=== PATIENT | female | born 1960 | race Caucasian/White ===

== ENCOUNTER 2016-04-26 19:59 | Inpatient (IN) | payer OTHER, BC ==
[~2016-04-26] VITALS: Ht 167.6 cm; Wt 68.6 kg
[2016-04-26 20:08] VITALS: BP 170/95; PULSE 84; RESP 18; TEMP 97.9; O2SAT 97
[2016-04-26] MEDS ORDERED: ONDANSETRON HCL 4 MG/2 ML VIAL IV PUSH ONE (20:15)
[2016-04-26] MEDS ORDERED: TETANUS/DIPHTHERIA TOXOID ADULT 0.5 ML VIAL IM ONE (20:15)
[2016-04-26] MEDS ORDERED: ceFAZolin 2 GM PREMIX 50 ML IV ONE (20:15)
[2016-04-26] MEDS ORDERED: HYDROmorphone HCL PF 1 MG/ML VIAL IV PUSH ONE ×2 (20:15→23:15)
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
[2016-04-26] MEDS ORDERED: ESTR0.5T3 PO (20:21)
[2016-04-26] MEDS ORDERED: VALA500T PO (20:21)
[2016-04-26] MEDS ORDERED: FLUT1SPR5 EACH NARE (20:21)
[2016-04-26] MEDS ORDERED: AMBI10TA PO (20:21)
[2016-04-26] MEDS ORDERED: IMIT25TA PO (20:21)
[2016-04-26 22:04] LABS: BASOPHIL % 0.2 % (0.0-2.0); EOSINOPHIL # 0.2 TH/MM3 (0-0.4); EOSINOPHIL % 1.7 % (0.0-4.0); HEMO FLAGS DIFF FINAL; LYMPH % 16.9 % (9.0-44.0); MEAN CELL VOLUME 92.1 FL (80.0-100.0); MEAN CORPUSCULAR HEMOGLOBIN 31.1 PG (27.0-34.0); MEAN CORPUSCULAR HGB CONC 33.8 % (32.0-36.0); NEUT % 75.2 % (16.0-70.0); PLATELET COUNT 320 TH/MM3 (150-450); RED BLOOD COUNT 4.12 MIL/MM3 (4.00-5.30); RED CELL DISTRIBUTION WIDTH 14.4 % (11.6-17.2); WHITE BLOOD COUNT 11.9 TH/MM3 (4.0-11.0)
[2016-04-26 22:17] LABS: APTT (PATIENT) 22.6 SEC (24.3-30.1); PROTHROMBIN TIME - PATIENT 10.7 SEC (9.8-11.6)
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
[2016-04-26] MEDS ORDERED: IOHEXOL 350 MG/ML 10 ML VIAL (for RAD DIAG) IV ONE (22:26)
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
[2016-04-26 22:45] LABS: BICARBONATE 25.3 MEQ/L (21.0-32.0); POTASSIUM 3.3 MEQ/L (3.5-5.1)
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
--- NOTE | 2016-04-26 23:06 | PD ---
Data Data Last Documented VS Vital Signs Date Time Temp Pulse Resp B/P Pulse Ox O2 Delivery O2 Flow Rate FiO2 04/26/16 23:50 100 3.00 100 04/26/16 23:50 Nasal Cannula 04/26/16 20:08 97.9 84 18 170/95 Orders Basic Metabolic Panel (Bmp) (04/26/16 20:14) Complete Blood Count With Diff (04/26/16 20:14) Prothrombin Time / Inr (Pt) (04/26/16 20:14) Act Partial Throm Time (Ptt) (04/26/16 20:14) Chest, Single Ap (04/26/16 20:14) Ct Brain W/O Iv Contrast(Rout) (04/26/16 20:14) Ct Cerv Spine W/O Contrast (04/26/16 20:14) Ct Abd/Pel W Iv Contrast(Rout) (04/26/16 20:14) Ct Thorax/ Chest W Iv Contrast (04/26/16 20:14) Forearm (2vws) (04/26/16 ) Type And Screen (04/26/16 20:14) Hydromorphone Pf Inj (Dilaudid Pf Inj) (04/26/16 20:15) Ondansetron Inj (Zofran Inj) (04/26/16 20:15) Tetanus/Diphtheria Tox Adult (Tetanus/Di (04/26/16 20:15) Electrocardiogram (04/26/16 ) Apply Cervical Collar (04/26/16 20:14) Cefazolin 2 Gm Premix (Ancef 2 Gm Premix (04/26/16 20:15) Collar [place] (04/26/16 ) Elbow, Limited (Ap&Lat) (04/26/16 ) Shoulder, Limited(2vws) (04/26/16 ) Iohexol 350 Inj (Omnipaque 350 Inj) (04/26/16 22:26) Hydromorphone Pf Inj (Dilaudid Pf Inj) (04/26/16 23:15) Propofol 200 Mg/20 Ml Inj (Diprivan 200 (04/26/16 23:45) Admit Order (Ed Use Only) (04/27/16 00:38) Vital Signs (Adult) Q4H (04/27/16 00:38) Diet Npo (04/27/16 Breakfast) Activity Bed Rest (04/27/16 00:38) ^ Saline Lock (04/27/16 00:38) ^ Notify Dr: Other (04/27/16 00:38) Ondansetron Inj (Zofran Inj) (04/27/16 00:45) Neuro Checks . ORDERED (04/27/16 00:38) Sodium Chloride 0.9% Flush (Ns Flush) (04/27/16 09:00) Sodium Chloride 0.9% Flush (Ns Flush) (04/27/16 00:45) Consult Orthopedic (04/27/16 00:38) Elbow, Limited (Ap&Lat) (04/27/16 ) Labs Laboratory Tests Test 04/26/16 21:10 White Blood Count 11.9 TH/MM3 Red Blood Count 4.12 MIL/MM3 Hemoglobin 12.8 GM/DL Hematocrit 38.0 % Mean Corpuscular Volume 92.1 FL Mean Corpuscular Hemoglobin 31.1 PG Mean Corpuscular Hemoglobin 33.8 % Concent Red Cell Distribution Width 14.4 % Platelet Count 320 TH/MM3 Mean Platelet Volume 8.9 FL Neutrophils (%) (Auto) 75.2 % Lymphocytes (%) (Auto) 16.9 % Monocytes (%) (Auto) 6.0 % Eosinophils (%) (Auto) 1.7 % Basophils (%) (Auto) 0.2 % Neutrophils # (Auto) 9.0 TH/MM3 Lymphocytes # (Auto) 2.0 TH/MM3 Monocytes # (Auto) 0.7 TH/MM3 Eosinophils # (Auto) 0.2 TH/MM3 Basophils # (Auto) 0.0 TH/MM3 CBC Comment DIFF FINAL Differential Comment Prothrombin Time 10.7 SEC Prothromb Time International 1.0 RATIO Ratio Activated Partial 22.6 SEC Thromboplast Time Sodium Level 142 MEQ/L Potassium Level 3.3 MEQ/L Chloride Level 105 MEQ/L Carbon Dioxide Level 25.3 MEQ/L Anion Gap 12 MEQ/L Blood Urea Nitrogen 13 MG/DL Creatinine 0.74 MG/DL Estimat Glomerular Filtration 81 ML/MIN Rate Random Glucose 103 MG/DL Calcium Level 8.2 MG/DL Blood Type B POSITIVE Antibody Screen NEGATIVE Blood Bank Comment [facility] Medical Record Reviewed: Yes Supervised Visit with RIOS: Yes Narrative Course Last [address] 04/26/162013 Signed Impressions: Service Date/Time: Tuesday, April 26, 2016 22:11 - CONCLUSION: 1. No acute findings. Paulie Chisholm MD Chest X-Ray 04/26/162013 Signed Impressions: Service Date/Time: Tuesday, April 26, 2016 21:40 - CONCLUSION: No acute disease. Paulie Chisholm MD Chest CT 04/26/162013 Signed Impressions: Service Date/Time: Tuesday, April 26, 2016 22:15 - CONCLUSION: 1. Fractures of the medial left clavicle and proximal left humerus. No mediastinal hematoma or evidence for traumatic aortic injury. No pneumothorax or effusion. 2. Enlarged main pulmonary artery. Paulie Chisholm MD Cervical Spine CT 04/26/162013 Signed Impressions: Service Date/Time: Tuesday, April 26, 2016 22:11 - CONCLUSION: 1. No fracture or acute appearing malalignment of the cervical spine. 2. Chronic findings as above. A couple millimeters of degenerative appearing anterolisthesis at C3/ C4. Jorge Alberto Schwarz MD Abdomen/Pelvis CT 04/26/162013 Signed Impressions: Service Date/Time: Tuesday, April 26, 2016 22:15 - CONCLUSION: 1. No visceral organ injury or other acute abnormality. 2. 26 mm cyst versus pseudocyst of the body of the pancreas, has a generally benign appearance. [address] or MRI suggested to confirm stability. There are a few scattered small calcifications of the left ovary noted as well, nonspecific but a little unusual in a patient this age but still probably benign. Recommend attention on the followup CT, potentially ultrasound correlation and surveillance if felt clinically indicated. 3. Subcentimeter benign appearing cyst of the liver. Jorge Alberto Schwarz MD Shoulder X-Ray 04/26/16 0000 Signed Impressions: Service Date/Time: Tuesday, April 26, 2016 21:43 - CONCLUSION: Comminuted neck and greater tuberosity fracturing of the left humerus with minimal displacement. Jorge Alberto Schwarz MD Radius/Ulna X-Ray 04/26/16 0000 Signed Impressions: Service Date/Time: Tuesday, April 26, 2016 22:00 - CONCLUSION: Comminuted, impacted and dorsally displaced/angulated fractures of the distal radius and ulna. Probable intra-articular involvement of the distal radius. Jorge Alberto Schwarz MD Elbow X-Ray 04/26/16 0000 Signed Impressions: Service Date/Time: Tuesday, April 26, 2016 22:00 - CONCLUSION: Posterolaterally dislocated elbow. Jorge Alberto Schwarz MD The patient will be admitted to the trauma surgery service. Dr. Polanco take the patient to the ER for operative repair of multiple fractures involving the left upper extremity. Propofol was employed to reduce the left elbow dislocation and distal radius fracture. Neurovascular check intact afterwards. Patient reassessed about 45 minutes to an hour after the reduction was performed and she reported markedly improved pain. Case discussed with Dr. Amaya for trauma surgery service. Ortho service notified of open wound at L elbow dislocation with fractures involving distal humerus and radial head. Procedures Procedure Narrative After the risks and benefits were discussed the following procedure was performed: MODERATE SEDATION: The patient was placed on a campus monitor and pulse oximetry. An ambu bag and suction was immediately available at bedside. The patient was monitored by the nurse. Oxygen saturation , heart rate and blood pressure were monitored. Procedural sedation was acheived using propofol. The patient was observed until awake and alert. Procedural Sedation time in attendance was 30 minutes. REDUCTION of the left posterolateral elbow dislocation performed with traction countertraction technique Reduction of the distal radius fracture performed with traction countertraction technique. Coaptation splint applied. Sugar tong splint applied. 2+ radial artery pulses before and after procedure. Motor and sensory function of the digits preserved after reduction. Diagnosis Primary Impression: Humerus fracture Additional Impressions: Radius fracture Dislocated elbow Clavicle fracture Admitting Information Admitting Physician Requests: Admit Scripts Hydrocodone-Acetaminophen ([place])10-325 Mg Tab1 Tab PO Q4H PRN (PAIN) #60 TAB Ref 0 Prov:Cesario Krishna 04/27/16 Damian Kitchen MD Apr 26, 2016 23:05
[2016-04-26] MEDS ORDERED: PROPOFOL 200 MG/20 ML AMP IV ONE (23:45)
[2016-04-26 23:50] VITALS: O2SAT 100
[2016-04-27] MEDS ORDERED: SODIUM CHLORIDE 0.9% FLUSH 5 ML FLUSH IVF PRN (00:45)
[2016-04-27] MEDS ORDERED: ONDANSETRON HCL 4 MG/2 ML VIAL IV PRN (00:45)
--- NOTE | 2016-04-27 01:05 | RADRPT ---
EXAM DATE/TIME: 04/27/2016 00:04 [facility] COMPARISON: ELBOW LEFT LIMITED (AP & LAT), April 26, 2016, 22:00. INDICATIONS : Post reduction. MEDICAL HISTORY : None. SURGICAL HISTORY : None. ENCOUNTER: Subsequent ACUITY: 1 day PAIN SCORE: Non-responsive. LOCATION: Left elbow. FINDINGS: Two-view examination status post reduction of elbow dislocation. There is normal alignment of the os seous structures. Nondisplaced fracture of the radial head. Fracture of the distal humerus both pos terior and lateral. A 5 mm displaced osseous fragment is present adjacent to the medial distal humer us. Extensive subcutaneous and deep soft tissue gas is present about the proximal forearm and senior energy trader ior arm. CONCLUSION: Post reduction of elbow fracture/dislocation. Van Duncan MD on April 27, 2016 at 1:00 Board Certified Radiologist. This report was verified electronically.
[2016-04-27] MEDS ORDERED: INSULIN HUMAN REGULAR 1,000 UNITS/10 ML VIAL SQ PRN (03:45)
[2016-04-27] MEDS: LACTATED RINGER'S 1000 ML IV SCH (03:45)
[2016-04-27] MEDS: SODIUM CHLORID 0.9% 500 ML IV SCH ×2 (03:45→20:09)
[2016-04-27 04:00] VITALS: BP 155/94; PULSE 96; RESP 18; TEMP 97.6; O2SAT 95
[2016-04-27] MEDS ORDERED: oxyCODONE/ACETAMINOPHEN 5 MG/325 MG TAB PO PRN (04:30)
[2016-04-27] MEDS: MORPHINE SULFATE 4 MG/ML INJ IV PRN ×5 (05:37→17:23)
[2016-04-27] MEDS: SODIUM CHLORIDE 0.9% FLUSH 5 ML FLUSH IVF SCH ×2 (07:37→21:00)
[2016-04-27 08:00] VITALS: BP 162/98; PULSE 86; RESP 18; TEMP 97; O2SAT 100
[2016-04-27] MEDS: DOCUSATE SODIUM 50 MG/SENNA 8.6 MG TAB PO SCH ×2 (09:30→21:27)
[2016-04-27] MEDS: MAGNESIUM HYDROXIDE SUSP 30 ML CUP PO SCH (09:30)
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
[2016-04-27] MEDS: PANTOPRAZOLE SODIUM 40 MG VIAL IV PUSH SCH (10:00)
[2016-04-27] MEDS ORDERED: ONDANSETRON HCL 4 MG/2 ML VIAL IV PUSH ONE (10:09)
[2016-04-27] MEDS ORDERED: PROPOFOL 200 MG/20 ML AMP IV ONE (10:09)
[2016-04-27] MEDS ORDERED: LACTATED RINGER'S 1000 ML INJ 1,000 ML IV ONE (10:10)
[2016-04-27] MEDS ORDERED: VANCOMYCIN HCL 1000 MG VIAL ONE (11:33)
[2016-04-27] MEDS ORDERED: GENTAMICIN SULFATE 80 MG/2 ML VIAL ONE (11:33)
[2016-04-27] MEDS ORDERED: ceFAZolin INJ 1,000 MG VIAL ONE (11:33)
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
[2016-04-27] MEDS ORDERED: HYDR-3366 PO (12:54)
--- NOTE | 2016-04-27 12:55 | PD.OP ---
cc: Robert Polanco MD Operative Report Date of Surgery: Apr 27, 2016 Preoperative Diagnosis: Closed left distal humerus fracture, open left elbow fracture dislocation, closed comminuted left distal radius fracture Postoperative Diagnosis: Procedure: Irrigation debridement of open left elbow wound, open reduction internal fixation comminuted intra-articular left distal radius fracture Anesthesia: Gen. Surgeon: Robert Polanco Director Of Research(s): KANDY Beebe PA-C The surgical procedure was assisted by my physician patient care nursing assistant. My P.A. presence was necessary throughout this case for the manipulation and positioning of the surgical extremity. My P.A. was assisting me throughout the duration of this procedure. The skill set of a physician patient care nursing assistant was medically necessary to complete this procedure. During the surgical case the ophthalmic surgical assistant was working at the back table and the physician patient care nursing assistant was directly assisting me. Operation and Findings: Patient was seen and evaluated preoperatively and found to have a displaced distal left radius fracture, left elbow laceration with fracture dislocation, and closed left proximal humerus fracture. Informed consent was obtained after detailed discussion of risk and benefits including bleeding, infection, injury to arteries, nerves, and blood vessels, weakness and numbness of hand, and tendon rupture. Informed consent was obtained. Patient received IV antibiotics prior to incision. Timeout procedure was performed. Operative extremity was prepped with alcohol followed by Hibiclens and draped usual sterile fashion. A standard volar approach to the distal radius was utilized. A 3 inch incision was made over the FCR tendon. Tendon sheath was opened. Pronator quadratus was elevated up. The fracture site was now visualized. The fracture did have intra-articular extension. Traction was applied. The articular surface was reduced. Fracture fragments were manipulated to achieve excellent reduction. K wires were used to hold provisional fixation. Fluoroscopy confirmed appropriate alignment of fracture. A Synthes 2 column variable angle distal radius plate was selected. Plate was provisionally fixed to bone with K wires. 2.7 and 2.4 cortical screws were used to compress plate to bone. Fluoroscopy confirmed appropriate alignment of fracture with well-placed hardware. Multiple 2.4 locking screws were now placed distally. Screws were predrilled and measured for appropriate length. 2 additional screws were placed into the shaft. K wires were removed. Final fluoroscopy revealed excellent of fracture with well-placed hardware. The wound was thoroughly irrigated with sterile saline. Subcutaneous tissue was closed with 3-0 Vicryl and skin was closed with 3-0 nylon. Next attention was turned towards the left elbow. There was a 1 cm traumatic laceration. This appeared to communicate down to the elbow joint. Laceration was extended. Overall the wound was clean. The wound and elbow were thoroughly irrigated with sterile saline. There was a small cortical step-off consistent with fracture. Bone was cleaned with curettes. The elbow was relatively stable throughout gentle range of motion. Incision was now closed with 3-0 nylon. Sterile dressings were applied with Xeroform, 4 x 4, soft roll , and a well padded long arm splint. Patient was awakened and transferred to recovery room in stable condition. Patient will need postoperative CT scan of elbow and x-rays of proximal humerus. She may need surgical intervention for the left proximal humerus fracture ORIF left distal humerus fracture if fractures are displaced. Robert Polanco MD Apr 27, 2016 12:55
[2016-04-27] MEDS ORDERED: Post-op Orders (for Pharmacy) MISC XX ONE (13:00)
[2016-04-27] MEDS ORDERED: MORPHINE SULFATE 4 MG/ML INJ IV PUSH PRN (13:00)
[2016-04-27] MEDS ORDERED: ACETAMINOPHEN/HYDROcodone 325 MG/10 MG TAB PO PRN (13:00)
[2016-04-27] MEDS ORDERED: fentaNYL CITRATE 250 MCG/5 ML AMP ONE (13:14)
[2016-04-27] MEDS ORDERED: MIDAZOLAM HCL 2 MG/2 ML VIAL ONE (13:14)
[2016-04-27] MEDS ORDERED: DO NOT ADM ANY ANTICOAGULANT DRUGS XX PRN (13:45)
--- NOTE | 2016-04-27 15:00 | RADRPT ---
EXAM DATE/TIME: 04/27/2016 11:36 [facility] COMPARISON: No previous studies available for comparison. INDICATIONS : Open reduction. MEDICAL HISTORY : None. SURGICAL HISTORY : None. ENCOUNTER: Subsequent ACUITY: 2 days PAIN SCORE: Non-responsive. LOCATION: Left upper extremity FINDINGS: Comminuted fracture of the distal left radius has undergone open reduction internal fixation. Fixatio n consists of a volar plate and multiple screws. Alignment is near-anatomic. There is also improved a lignment without instrumentation of the distal ulna fracture. CONCLUSION: Interim screw and plate fixation of the distal radial fracture. Near-anatomic alignment. No acute com plication demonstrated. Jorge Alberto Schwarz MD on April 27, 2016 at 14:57 Board Certified Radiologist. This report was verified electronically.
--- NOTE | 2016-04-27 15:15 | RADRPT ---
EXAM DATE/TIME: 04/27/2016 14:12 [facility] COMPARISON: No previous studies available for comparison. INDICATIONS : Status post reduction. RADIATION DOSE: 13.99 CTDIvol (mGy) MEDICAL HISTORY : Cardiovascular disease. SURGICAL HISTORY : Hysterectomy. ENCOUNTER: Initial ACUITY: 1 day PAIN SCALE: 7/10 LOCATION: Left elbow TECHNIQUE: Volumetric scanning of the elbow was performed. Using automated exposure control and adjustment of t he mA and/or kV according to patient size, radiation dose was kept as low as reasonably achievable to obtain optimal diagnostic quality images. FINDINGS: There is an approximately 2 mm depressed but otherwise nondisplaced fracture anteriorly the radial he ad. Approximately 20 mm, very irregular fracture fragment is seen laterally off of the distal humeru s which involves the capitellum and also the lateral epicondyle. There is approximately 7 millimeters of proximal and a few millimeters of posterior displacement. Small comminuted fracture fragments are seen off of the coronoid process, most within the anteri or fossa. Small avulsion fracture fragments with medial and distal displacement seen off of the medial epi condyle, one measuring about 7 mm and another about 8 mm. CONCLUSION: 1. 2 mm depressed radial head fracture. 2. Large fracture fragment off of the lateral aspect of the distal humerus that involves the lateral epicondyle and focally involves the lateral portions of the capitellum articular surface. 3. Small fracture fragments off of the coronoid, most of them displaced proximally into the anterior fossa. 4. Two subcentimeter, distal/medial displaced fracture fragments off of the medial epicondyle. Jorge Alberto Schwarz MD on April 27, 2016 at 15:06 Board Certified Radiologist. This report was verified electronically.
[2016-04-27 16:00] VITALS: BP 146/89; PULSE 81; RESP 18; TEMP 98.1; O2SAT 100
[2016-04-27] MEDS: ceFAZolin 2 GM PREMIX 50 ML IV SCH ×2 (16:24→23:54)
--- NOTE | 2016-04-27 18:30 | HHI.PR ---
Subjective Subjective Notes S/P ORIF LEFT radius Objective Vitals/I&O Vital Signs Date Time Temp Pulse Resp B/P Pulse Ox O2 Delivery O2 Flow Rate FiO2 04/27/16 14:00 98.5 90 14 159/89 95 Room Air 04/27/16 13:10 2 04/26/16 23:50 100 Labs Laboratory Tests Test 04/26/16 21:10 White Blood Count 11.9 Red Blood Count 4.12 Hemoglobin 12.8 Hematocrit 38.0 Mean Corpuscular Volume 92.1 Mean Corpuscular Hemoglobin 31.1 Mean Corpuscular Hemoglobin 33.8 Concent Red Cell Distribution Width 14.4 Platelet Count 320 Mean Platelet Volume 8.9 Neutrophils (%) (Auto) 75.2 Lymphocytes (%) (Auto) 16.9 Monocytes (%) (Auto) 6.0 Eosinophils (%) (Auto) 1.7 Basophils (%) (Auto) 0.2 Neutrophils # (Auto) 9.0 Lymphocytes # (Auto) 2.0 Monocytes # (Auto) 0.7 Eosinophils # (Auto) 0.2 Basophils # (Auto) 0.0 CBC Comment DIFF FINAL Differential Comment Prothrombin Time 10.7 Prothromb Time International 1.0 Ratio Activated Partial 22.6 Thromboplast Time Sodium Level 142 Potassium Level 3.3 Chloride Level 105 Carbon Dioxide Level 25.3 Anion Gap 12 Blood Urea Nitrogen 13 Creatinine 0.74 Estimat Glomerular Filtration 81 Rate Random Glucose 103 Calcium Level 8.2 Blood Type B POSITIVE Antibody Screen NEGATIVE Blood Bank Comment Radiology Last Impressions Head CT 04/26/162013 Signed Impressions: Service Date/Time: Tuesday, April 26, 2016 22:11 - CONCLUSION: 1. No acute findings. Paulie Chisholm MD Chest X-Ray 04/26/162013 Signed Impressions: Service Date/Time: Tuesday, April 26, 2016 21:40 - CONCLUSION: No acute disease. Paulie Chisholm MD Chest CT 04/26/162013 Signed Impressions: Service Date/Time: Tuesday, April 26, 2016 22:15 - CONCLUSION: 1. Fractures of the medial left clavicle and proximal left humerus. No mediastinal hematoma or evidence for traumatic aortic injury. No pneumothorax or effusion. 2. Enlarged main pulmonary artery. Paulie Chisholm MD Cervical Spine CT 04/26/162013 Signed Impressions: Service Date/Time: Tuesday, April 26, 2016 22:11 - CONCLUSION: 1. No fracture or acute appearing malalignment of the cervical spine. 2. Chronic findings as above. A couple millimeters of degenerative appearing anterolisthesis at C3/ C4. Jorge Alberto Schwarz MD Abdomen/Pelvis CT 04/26/162013 Signed Impressions: Service Date/Time: Tuesday, April 26, 2016 22:15 - CONCLUSION: 1. No visceral organ injury or other acute abnormality. 2. 26 mm cyst versus pseudocyst of the body of the pancreas, has a generally benign appearance. [address] or MRI suggested to confirm stability. There are a few scattered small calcifications of the left ovary noted as well, nonspecific but a little unusual in a patient this age but still probably benign. Recommend attention on the followup CT, potentially ultrasound correlation and surveillance if felt clinically indicated. 3. Subcentimeter benign appearing cyst of the liver. Jorge Alberto Schwarz MD Shoulder X-Ray 04/26/16 0000 Signed Impressions: Service Date/Time: Tuesday, April 26, 2016 21:43 - CONCLUSION: Comminuted neck and greater tuberosity fracturing of the left humerus with minimal displacement. Jorge Alberto Schwarz MD Radius/Ulna X-Ray 04/26/16 0000 Signed Impressions: Service Date/Time: Tuesday, April 26, 2016 22:00 - CONCLUSION: Comminuted, impacted and dorsally displaced/angulated fractures of the distal radius and ulna. Probable intra-articular involvement of the distal radius. Jorge Alberto Schwarz MD Elbow X-Ray 04/26/16 0000 Signed Impressions: Service Date/Time: Tuesday, April 26, 2016 22:00 - CONCLUSION: Posterolaterally dislocated elbow. Jorge Alberto Schwarz MD Narrative Exam GENERAL: 55-year-old well-nourished, well developed female lying in bed. SKIN: Warm and dry. HEAD: Normocephalic. ENT: No nasal bleeding or discharge. Mucous membranes pink and moist. NECK: Trachea midline. No JVD. CARDIOVASCULAR: Regular rate and rhythm. RESPIRATORY: No accessory muscle use. Lungs clear to auscultation. Breath sounds equal bilaterally. GASTROINTESTINAL: Abdomen soft, non-tender, nondistended. + BS. MUSCULOSKELETAL: Extremities without cyanosis, or edema. Left arm Charly wrap in place and in sling. MAEW, + pulses with good cap refill. NEUROLOGICAL: Awake and alert. Normal speech. A/P Assessment and Plan INJURIES: LEFT clavicle fx LEFT dislocated elbow LEFT Radius/ulna fx LEFT humerus fx Incidental 26mm pseudocyst in pancreas 04/27: ORIF LEFT wrist PMHx: Migraines, osteoporosis, arthritis Diet: Regular Pulm: IS, encourage patient use. Pain: Morphine, [place], added Robaxin for better pain control. Activity: OOB, PT & OT ordered. ([facility] DECKER) GI: IV Protonix Bowel: Elisabeth-Colace, MOM. No BM yet DVT: SCDs ABX: Rocephin Case management consulted for discharge planning. Mirlande Teixeira Apr 27, 2016 18:30
--- NOTE | 2016-04-27 19:16 | EKG ---
Date Performed: 04/26/2016 Time Performed: 20:32:04 PTAGE: 55 years EKG: Sinus rhythm NORMAL ECG NO PREVIOUS TRACING DOCTOR: Silas Kasper Interpretating Date/Time 04/27/2016 19:14:22
[2016-04-27] MEDS ORDERED: SUMA100T2 PO (20:33)
[2016-04-27 20:35] VITALS: BP 157/83; PULSE 90; RESP 16; TEMP 96.7; O2SAT 100
[2016-04-27] MEDS: ACETAMINOPHEN/HYDROcodone 325 MG/10 MG TAB PO PRN (21:27)
[2016-04-27] MEDS: METHOCARBAMOL 500 MG TAB PO SCH (21:27)
[2016-04-27] MEDS ORDERED: FLUTICASONE PROPIONATE 50 MCG/ACT 16 GM NASAL SPRAY NASAL PRN (21:30)
[2016-04-27] MEDS ORDERED: ZOLPIDEM TARTRATE 10 MG TAB PO PRN (21:30)
[2016-04-27] MEDS: SUMAtriptan SUCCINATE 50 MG TAB PO PRN ×2 (21:34→23:54)
[2016-04-27] MEDS: valACYclovir HCL 500 MG TAB PO PRN (21:34)
[2016-04-27 23:50] VITALS: BP 154/87; PULSE 84; RESP 17; TEMP 96.7; O2SAT 100
[2016-04-28] MEDS: LACTATED RINGER'S 1000 ML IV SCH (00:45)
[2016-04-28] MEDS: ACETAMINOPHEN/HYDROcodone 325 MG/10 MG TAB PO PRN ×4 (01:39→14:33)
[2016-04-28 04:35] VITALS: BP 142/83; PULSE 84; RESP 16; TEMP 97.2; O2SAT 99
[2016-04-28] MEDS: METHOCARBAMOL 500 MG TAB PO SCH ×2 (05:55→14:29)
[2016-04-28 06:15] LABS: AUTOMATED NEUTROPHIL # 7.4 TH/MM3 (1.8-7.7); BASOPHIL % 0.1 % (0.0-2.0); EOSINOPHIL % 0.3 % (0.0-4.0); HEMATOCRIT 32.6 % (35.0-46.0); HEMO FLAGS DIFF FINAL; LYMPH % 13.3 % (9.0-44.0); LYMPHOCYTE # 1.2 TH/MM3 (1.0-4.8); MEAN CELL VOLUME 91.1 FL (80.0-100.0); MEAN CORPUSCULAR HEMOGLOBIN 31.2 PG (27.0-34.0); MEAN CORPUSCULAR HGB CONC 34.3 % (32.0-36.0); MONO % 7.8 % (0.0-8.0); NEUT % 78.5 % (16.0-70.0); PLATELET COUNT 257 TH/MM3 (150-450); RED BLOOD COUNT 3.58 MIL/MM3 (4.00-5.30); RED CELL DISTRIBUTION WIDTH 14.5 % (11.6-17.2); WHITE BLOOD COUNT 9.4 TH/MM3 (4.0-11.0)
[2016-04-28 07:04] LABS: ALKALINE PHOSPHATASE 45 U/L (45-117); ALT (GPT) 25 U/L (10-53); ANION GAP 7 MEQ/L (5-15); AST (GOT) 20 U/L (15-37); BLOOD UREA NITROGEN 6 MG/DL (7-18); CHLORIDE 103 MEQ/L (98-107); GLOMERULAR FILTRATION RATE 88 ML/MIN (>89); POTASSIUM 3.6 MEQ/L (3.5-5.1); SODIUM (NA) 140 MEQ/L (136-145); TOTAL BILIRUBIN ADULT 0.5 MG/DL (0.2-1.0)
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
[2016-04-28 08:00] VITALS: BP 136/82; PULSE 91; RESP 17; TEMP 98.4; O2SAT 97
[2016-04-28] MEDS: ceFAZolin 2 GM PREMIX 50 ML IV SCH (08:00)
[2016-04-28] MEDS: MAGNESIUM HYDROXIDE SUSP 30 ML CUP PO SCH (08:00)
[2016-04-28] MEDS: DOCUSATE SODIUM 50 MG/SENNA 8.6 MG TAB PO SCH (08:00)
[2016-04-28] MEDS: MORPHINE SULFATE 4 MG/ML INJ IV PRN (10:40)
[2016-04-28] MEDS: PANTOPRAZOLE SODIUM 40 MG VIAL IV PUSH SCH (10:40)
--- NOTE | 2016-04-28 11:28 | RADRPT ---
EXAM DATE/TIME: 04/28/2016 10:58 [facility] COMPARISON: SHOULDER LEFT LTD (2VWS), April 26, 2016, 21:43. INDICATIONS : Evaluate left humerus fracture. MEDICAL HISTORY : None. SURGICAL HISTORY : None. ENCOUNTER: Subsequent ACUITY: 3 days PAIN SCORE: 5/10 LOCATION: Left proximal humerus FINDINGS: There is a comminuted fracture of the proximal humerus. The humeral shaft is minimally medially disp laced by approximately 5 mm. There are fracture fragments involving the greater tubercle. The bony humeral joint is normally aligned. CONCLUSION: Comminuted proximal left humeral fracture. Jorge Alberto Serrano MD on April 28, 2016 at 11:25 Board Certified Radiologist. This report was verified electronically.
[2016-04-28] MEDS ORDERED: METH500T3 PO (11:48)
[2016-04-28 12:00] VITALS: BP 143/81; PULSE 95; RESP 16; TEMP 98.9; O2SAT 100
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
[2016-04-28] MEDS: valACYclovir HCL 500 MG TAB PO PRN (14:33)
[2016-04-29] MEDS ORDERED: PANTOPRAZOLE SOD 40 MG DELAYED RELEASE TAB PO SCH (09:00)
[2016-05-13] MEDS ORDERED: ESTR42.5V VAGINAL (07:22)
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
== END 2016-04-28 17:02 | disposition home or self-care (01) | DRG 492 ==
LOC: NEPC 19:59 → NEDA 04-27 00:41 → N06A 04-27 03:10
PROVIDERS: ADMIT Surgery; ATTEND Surgery
PROC: 0PBG0ZZ Excision of Left Humeral Shaft, Open Approach (ICD-10-PCS; 2016-04-27)
PROC: 0PSJ04Z Reposition Left Radius with Internal Fixation Device, Open Approach (ICD-10-PCS; principal; 2016-04-27 11:44)
DX: S42.202A Unspecified fracture of upper end of left humerus, initial encounter for closed fracture (principal); S52.122B Displaced fracture of head of left radius, initial encounter for open fracture type I or II; K86.3 Pseudocyst of pancreas; K76.89 Other specified diseases of liver; S52.572A Other intraarticular fracture of lower end of left radius, initial encounter for closed fracture; G43.909 Migraine, unspecified, not intractable, without status migrainosus; M19.90 Unspecified osteoarthritis, unspecified site; M43.10 Spondylolisthesis, site unspecified; M81.0 Age-related osteoporosis without current pathological fracture; S42.002A Fracture of unspecified part of left clavicle, initial encounter for closed fracture; S60.812A Abrasion of left wrist, initial encounter; V03.10XA Pedestrian on foot injured in collision with car, pick-up truck or van in traffic accident, initial encounter; Y92.410 Unspecified street and highway as the place of occurrence of the external cause
CPT/HCPCS: 12001; 25605; 70450; 71010; 71260; 72125; 73030; 73070; 73090; 73100; 73200; 74177; 76000; 80048; 80053; 85025; 85610; 85730; 86850; 86900; 86901; 90471; 90714; 93005; 94150; 96365; 96375; 96376; 99156; 99157; C1713; C9113; J0690; J1170; J1580; J2250; J2270; J2405; J3010; J3370; J7120; L0150; Q9967

== ENCOUNTER → 2016-05-13 | Day surgery (SDC) | payer OTHER, BC ==
[~2016-05-13] VITALS: Ht 167.6 cm; Wt 64.5 kg
[~2016-05-13] MED LIST: *HYDROmorphone PF 1 MG VIAL PERIprocedural Use ONLY ONE; *LABETALOL HCL 100 MG/20 ML VIAL PERIprocedural Use ONLY ONE; *morphine SULFATE 8 MG/ML PERIprocedure ONLY ONE; ACETAMINOPHEN 1000 MG/100 ML VIAL IV ONE; ACETAMINOPHEN/HYDROcodone 325 MG/10 MG TAB PO PRN; AMBI10TA PO; BUPIVACAINE/EPINEPHRINE 0.25% 50 ML VIAL ONE; CHLORHEXIDINE GLUCONATE 4% SOLN 120 ML BTL TOPICAL SCH; DEXAMETHASONE SOD PHOS 4 MG/ML VIAL ONE; DO NOT ADM ANY ANTICOAGULANT DRUGS XX PRN; ESTR0.5T3 PO; ESTR42.5V VAGINAL; ESTRADIOL 0.1 MG/GM VAG CREAM 42.5 GM VAGINAL SCH; FAMOTIDINE 20 MG/2 ML VIAL ONE; FLUT1SPR5 EACH NARE; FLUTICASONE PROPIONATE 50 MCG/ACT 16 GM NASAL SPRAY EACH NARE SCH; GENTAMICIN SULFATE 80 MG/2 ML VIAL ONE; HYDR-3366 PO; IMIT25TA PO; INSULIN HUMAN REGULAR 1,000 UNITS/10 ML VIAL SQ PRN; LACTATED RINGER'S 1000 ML INJ 1,000 ML IV ONE; LACTATED RINGER'S 1000 ML IV SCH; METH500T3 PO; METHOCARBAMOL 500 MG TAB PO SCH; METOPROLOL TARTRATE 25 MG TAB PO PRN; MIDAZOLAM HCL 2 MG/2 ML VIAL ONE; MORPHINE SULFATE 4 MG/ML INJ IV PUSH PRN; ONDANSETRON HCL 4 MG/2 ML VIAL IV PUSH ONE; PROPOFOL 200 MG/20 ML AMP IV ONE; Post-op Orders (for Pharmacy) MISC XX ONE; SODIUM CHLORID 0.9% 500 ML IV SCH; SUMA100T2 PO; SUMAtriptan SUCCINATE 25 MG TAB PO PRN; VALA500T PO; VANCOMYCIN 1000 MG/NS 250 ML (for <70 kg) IV SCH; ZOLPIDEM TARTRATE 10 MG TAB PO PRN; ceFAZolin 2 GM PREMIX 50 ML IV SCH; fentaNYL CITRATE 250 MCG/5 ML AMP ONE; valACYclovir HCL 500 MG TAB PO PRN
[2016-05-13 07:26] VITALS: BP 137/86; PULSE 93; RESP 20; TEMP 98.1; O2SAT 99
--- NOTE | 2016-05-13 10:15 | PD.OP ---
cc: Robert Polanco MD Operative Report Date of Surgery: May 13, 2016 Preoperative Diagnosis: Left elbow fracture dislocation, left elbow contracture Postoperative Diagnosis: Procedure: Manipulation of left elbow under anesthesia, open reduction and fixation left distal humerus lateral condyle fracture Anesthesia: Gen. Surgeon: Robert Polanco Shoe Associate(s): KANDY Moss PA-C The surgical procedure was assisted by my physician baking assistant. My P.A. presence was necessary throughout this case for the manipulation and positioning of the surgical extremity. My P.A. was assisting me throughout the duration of this procedure. The skill set of a physician baking assistant was medically necessary to complete this procedure. During the surgical case the electroencephalograph technologist was working at the back table and the physician baking assistant was directly assisting me. Operation and Findings: Patient was seen and evaluated preoperatively and found to have a displaced distal distal humerus lateral condyle fracture and a minimally displaced radial head fracture. She has developed a contracture of the elbow with minimal range of motion.. Informed consent was obtained after detailed discussion of risk and benefits including bleeding, infection, injury to arteries, nerves, and blood vessels, weakness and numbness of hand, and tendon rupture. Informed consent was obtained. Patient received IV antibiotics prior to incision. Timeout procedure was performed. Operative extremity was prepped with alcohol followed by Hibiclens and draped usual sterile fashion. Procedure began with manipulation of the elbow under anesthesia. Initial range of motion of the elbow was from 70 to 90. The elbow was gently flexed. I was able to achieve 135 of flexion. Next the elbow was gently extended. I was able to achieve extension to 10. Care was taken to avoid displacement of the left proximal humerus or distal radius fractures. Next attention was turned towards the distal humerus fracture. A 4 inch incision over the lateral aspect of the distal humerus. Subcutaneous tissue dissected with Bovie. Fascia was elevated and the anterior aspect of the distal humerus was exposed. The capitellum was split. The lateral fragment was significant displaced. The lateral condyle fragment was elevated. The capitellar fragment reduced into anatomic alignment. K wires were used to hold provisional fixation. The fragment was relatively small. A 2.7 cortical lag screw was placed from lateral to medial. Good compression was obtained. 2 Arthrex 1.5 mm bioabsorbable pins were now placed from lateral to medial for additional support. The elbow was placed throughout range of motion. The fragment appeared to be stable. K wires were removed. Final fluoroscopy revealed excellent alignment of fracture with well-placed hardware. Fluoroscopy was used to also visualized the distal radius and ulna fractures. These fractures were also well aligned. The wound was thoroughly irrigated with sterile saline. Subcutaneous tissue was closed with 3-0 Vicryl and skin was closed with james. Sterile dressings were applied with Xeroform, 4 x 4, soft roll, and a well padded volar splint. Patient was awakened and transferred to recovery room in stable condition Robert Polanco MD May 13, 2016 10:15
[2016-05-13 12:10] VITALS: BP_DIAS 95
[2016-05-13 13:00] VITALS: PULSE 86; RESP 18; TEMP 98.2; O2SAT 98
--- NOTE | 2016-05-13 16:10 | RADRPT ---
EXAM DATE/TIME: 05/13/2016 09:50 [facility] COMPARISON: ELBOW LEFT LIMITED (AP & LAT), April 27, 2016, 0:04. INDICATIONS : ORIF left distal humerus. MEDICAL HISTORY : None. SURGICAL HISTORY : None. ENCOUNTER: Subsequent ACUITY: 2 weeks PAIN SCORE: Non-responsive. LOCATION: Left distal humerus. FINDINGS: There are postsurgical changes with operative reduction and internal fixation of the previously seen fracture. The alignment is anatomic. CONCLUSION: Postsurgical changes as above. Alonzo Bailey MD on May 13, 2016 at 16:08 Board Certified Radiologist. This report was verified electronically.
--- NOTE | 2016-05-13 16:10 | RADRPT ---
EXAM DATE/TIME: 05/13/2016 09:50 [facility] COMPARISON: WRIST LEFT LIMITED (AP & LAT), April 27, 2016, 11:36. INDICATIONS : Follow up left wrist surgery. MEDICAL HISTORY : None. SURGICAL HISTORY : ORIF left wrist. ENCOUNTER: Subsequent ACUITY: 2 weeks PAIN SCORE: Non-responsive. LOCATION: Left wrist. FINDINGS: FINDINGS: There are postsurgical changes with operative reduction and internal fixation of the previously seen fracture. The alignment is anatomic. Fracture line remains visible. Ulnar fracture is also identified and unchanged. CONCLUSION: 1. Stable postsurgical changes Alonzo Bailey MD on May 13, 2016 at 16:08 Board Certified Radiologist. This report was verified electronically.
== END | disposition home or self-care (01) ==
LOC: HSDC 06:39
PROVIDERS: ATTEND Orthopaedic Surgery Orthopaedic Trauma
DX: S42.452A Displaced fracture of lateral condyle of left humerus, initial encounter for closed fracture (principal); M24.522 Contracture, left elbow; V03.10XA Pedestrian on foot injured in collision with car, pick-up truck or van in traffic accident, initial encounter
CPT/HCPCS: 01740; 24579; 24605; 73070; 73100; 76000; C1713; J0131; J0690; J1100; J1170; J1580; J2250; J2270; J2405; J3010; J3370; J7050; J7120